=== PATIENT | female | born 1965 ===

== ENCOUNTER 2018-04-30 10:50 | Emergency (ER) | payer OTHER ==
[~2018-04-30] VITALS: Ht 162.6 cm; Wt 63.5 kg
== END 2018-04-30 13:31 | disposition home or self-care (01) ==
LOC: ER 10:50
DX: J45.998 Other asthma (principal); B34.9 Viral infection, unspecified

== ENCOUNTER → 2019-04-25 | Emergency (ER) | payer OTHER ==
[~2019-04-25] VITALS: Ht 162.6 cm; Wt 59.0 kg
[~2019-04-25] MED LIST: LEVSIN/SL0.125 MG SL; PEPCID40 MG PO; ZOFRAN4 MG PO
== END | disposition home or self-care (01) ==
LOC: ER 22:34
DX: K29.70 Gastritis, unspecified, without bleeding (principal); R10.13 Epigastric pain